=== PATIENT | male | born 1970 | race Caucasian/White ===

== ENCOUNTER → 2018-09-24 08:51 | Outpatient (CLI) | payer SELFPAY | PROVIDERS: Family Provider Internal Medicine; PCP Internal Medicine; Referring Provider Internal Medicine; Visit Provider Internal Medicine | DX: I49.9 Cardiac arrhythmia, unspecified (principal) | CPT/HCPCS: 93225; 93226 ==

== ENCOUNTER → 2018-10-23 07:06 | Outpatient (CLI) | payer SELFPAY ==
--- NOTE | 2018-10-23 13:31 | STRESSREP ---
Stress Test Report Exercise myocardial perfusion stress test. 48-year-old man with a history of chest pain. Medications: Lipitor Stress protocol. Resting EKG demonstrates normal sinus rhythm with a rate of 59 bpm normal intervals are noted resting blood pressure is 118/82 mmHg. The patient exercised according to regular Stone protocol for total duration of 11 minutes and 30 seconds the maximum heart rate attained was 179 bpm which was 105% of maximum predicted heart rate the maximum workload was 11.3 metabolic equivalents. Patient completed 2 minutes and 30 seconds to stage IV of the Stone protocol. At rest there were no ST or T wave changes noted suggest ischemia peak exercise upsloping ST changes only were noted with normally the criteria for ischemia. Myocardial perfusion protocol. 11.9 mCi of technetium 99m sestamibi was injected at rest. The patient exercised according to regular Stone protocol for 11-1/2 minutes attaining 105% of maximum predicted heart rate at peak exercise 33.5 mCi of technetium 99m sestamibi was injected stress images were obtained stress and rest images were reconstructed and compared in the short axis vertical and horizontal long axis. Gated images were also obtained. The resting blood pressure 118/82 with a peak blood pressure 158/74 mmHg. Perfusion SPECT analysis: Review of the stress images demonstrate a normal cardiac silhouette size. There is normal uptake of tracer noted in the anterior wall septum and lateral wall. The basal inferior wall has mildly reduced perfusion on the stress images as well as on the resting images to a similar extent. The above is likely secondary to diaphragmatic and GI attenuation rather than ischemia. No previous infarct is noted. Gated SPECT analysis: The gated ejection fraction is noted to be 65%. Conclusion: Normal exercise myocardial perfusion stress test at a high workload. Preserved ejection fraction.
--- OUTSIDE RECORDS SUMMARY | 2018-12-08 18:54 | XMS RPT_ITS ---
:1970 Author Organization [facility] Care Team Providers Name Role Phone Fast DO, Colleen A Attending Unavailable Fast DO, Colleen A Consulting Unavailable Zaid Flowers Attending Unavailable Fast, Colleen Referring Unavailable Fast, Colleen Attending Unavailable Fast, Colleen Referring Unavailable Fast, Colleen Primary Care Unavailable Fast, Colleen Attending Unavailable Fast, Colleen Referring Unavailable Fast, Colleen Primary Care Unavailable Jonathan, Thiago Attending Unavailable Fast, Colleen Referring Unavailable Purpose Purpose PROBLEMS PROBLEMS DATE TYPE CONDITION / CODE ATTENDING STATUS SOURCE 11/16/2018 Unknown R07.9 - Chest Jonathan, [place] Active [place] pain, unspecified Community / R07.9(ICD-10) Hospital Repository 10/19/2018 Unknown I49.9 - Cardiac Zaid Flowers Active [place] arrhythmia, Community unspecified / Hospital I49.9(ICD-10) Repository PROCEDURES PROCEDURES No Procedure Records FoundVITAL SIGNS VITAL SIGNS No Vital Signs Records FoundRESULTS RESULTS STRESS REPORT Observed: 10/23/2018 Status: F Source: [place] 1:34 PM [facility] REPOSITORY [facility] Cardiovascular Services [address] [place] [address] MR#: [id number] Acct: [id number] Name: EDUARD FAIRBANKS Rep #: [id number] : 1970 48 From: Thiago Castillo MD Primary Care: Colleen Ngo DO Status: REG CLI Ordering Dr: Sex: M C Stress Test Report Exercise myocardial perfusion stress test. 48-year-old man with a history of chest pain. Medications: Lipitor Stress protocol. Resting EKG demonstrates normal sinus rhythm with a rate of 59 bpm normal intervals are noted resting blood pressure is 118/82 mmHg. The patient exercised according to regular Stone protocol for total duration of 11 minutes and 30 seconds the maximum heart rate attained was 179 bpm which was 105% of maximum predicted heart rate the maximum workload was 11.3 metabolic equivalents. Patient completed 2 minutes and 30 seconds to stage IV of the Stone protocol. At rest there were no ST or T wave changes noted suggest ischemia peak exercise upsloping ST changes only were noted with normally the criteria for ischemia. Myocardial perfusion protocol. 11.9 mCi of technetium 99m sestamibi was injected at rest. The patient exercised according to regular Stone protocol for 11-1/2 minutes attaining 105% of maximum predicted heart rate at peak exercise 33.5 mCi of technetium 99m sestamibi was injected stress images were obtained stress and rest images were reconstructed and compared in the short axis vertical and horizontal long axis. Gated images were also obtained. The resting blood pressure 118/82 with a peak blood pressure 158/74 mmHg. Perfusion SPECT analysis: Review of the stress images demonstrate a normal cardiac silhouette size. There is normal uptake of tracer noted in the anterior wall septum and lateral wall. The basal inferior wall has mildly reduced perfusion on the stress images as well as on the resting images to a similar extent. The above is likely secondary to diaphragmatic and GI attenuation rather than ischemia. No previous infarct is noted. Gated SPECT analysis: The gated ejection fraction is noted to be 65%. Conclusion: Normal exercise myocardial perfusion stress test at a high workload. Preserved ejection fraction. 10/23/18 1338 <Electronically signed by Thiago Castillo MD> Date Thiago Castillo MD CC: Colleen Ngo DO Date Dictated: 10/23/181330 Date Transcribed: 10/23/181330 Director Of Testing: [place] Signed ALLERGIES ALLERGIES No Allergies Records FoundENCOUNTERS ENCOUNTERS ADMIT/DISCHARGE ACCOUNT ADMITTING ENCOUNTER LOCATION SOURCE NUMBER CLASS 11/09/2018 [id number] Ambulatory Building:[facility] [place] Practices Repository 10/23/2018 [id number] Ambulatory [facility] ing:[facility] Repository 10/23/2018 [id number] Ambulatory [facility] [place] [facility] Repository 09/24/2018 [id number] Ambulatory [facility] [place] [facility] Repository 09/24/2018 [id number] Ambulatory [address] ing:[facility]N Repository FUNCTIONAL STATUS FUNCTIONAL STATUS No Functional Status Records FoundEQUIPMENT EQUIPMENT No Equipment Records FoundPAYERS PAYERS ENCOUNTER GUARANTOR PAYER SUBSCRIBER SOURCE 10/23/2018 EDUARD A Primary NOT GIVENUNK [place] [id number] JUD[place] Insurance:SELF PAY [facility] [id number]: (330) Number: Effective Repository [phone] () Date:2018-10-19 10/23/2018 EDUARD A Primary NOT GIVENUNK [place] [id number] JUD[place] Insurance:SELF PAY [facility] [id number]: (330) Number: Effective Repository [phone] () Date:2018-10-23 09/24/2018 Eduard A Primary NOT GIVENUNK [place] JUDY Insurance:SELF PAY [facility] [id number]: (330) Number: Effective Repository [phone] () Date:2018-09-24 09/24/2018 Eduard A Primary NOT GIVENUNK [place] JUDY Insurance:SELF PAY [facility] [id number]: (330) Number: Effective Repository [phone] () Date:2018-09-23 SOCIAL HISTORY SOCIAL HISTORY No Social History Records FoundFAMILY HISTORY FAMILY HISTORY No Family History Records FoundPREGNANCY No Status Records FoundADVANCE DIRECTIVES ADVANCE DIRECTIVES No Advanced Directives Records FoundINFORMATION SOURCE INFORMATION SOURCE DATE CREATED AUTHOR AUTHOR'S ORGANIZATION 12/02/2018 [facility]
--- OUTSIDE RECORDS SUMMARY | 2018-12-08 18:54 | XMS RPT_ITS | Continuity of Care Document ---
:1970 Author Organization [facility] Address [address] [facility] [address] [place] [address] Phone Care Team Providers Name Role Phone Colleen Ngo DO Unavailable Dr. Pierre Van Unavailable StephontrinidadGennyKaren Unavailable Unavailable Unavailable Unavailable Problems Name Dates Details Acute chest pain (R07.9, 786.50) Status: Active Arrhythmia (I49.9, 427.9) Status: Active BMI 23.0-23.9, adult (Z68.23, V85.1) Status: Active Chest pain on exertion (R07.9, 786.50) Status: Active Elevated glycated hemoglobin (R73.09, 790.29) Comments: better Status: Active Encounter for screening for malignant neoplasm of prostate (Renamed from Screening for prostate cancer) (Z12.5, V76.44) Status: Active Hyperlipidemia (E78.5, 272.4) Comments: he doesnt want to increase meds he will work harder on decreasing animal products and increasing exercise Status: Active [facility] WELLNESS EXAM Status: Active Melanoma (C43.9, 172.9) Comments: he will call and set up followup Status: Active No Known / History 03-Dec-2017 Status: Active Nonsmoker (Z78.9, V49.89) Status: Active Medications Name Dates Details Atorvastatin Calcium 20 MG Oral Tablet 1 (one) Tablet qhs for 0 days Quantity: 90 {Tablet} Refills: 3 Ordered:18-Feb-2018 Damon Ngo DOa AFColleen sorensen DO A Start : 18-Feb-2018 Active Multivitamin Oral Tablet 1 (one) qd Active Allergies and Adverse Reactions Name Dates Details Penicillin G Potassium *PENICILLINS* (Allergy) Reaction: Rash Status: Active Comments: as a child Procedures Procedure Dates Details Colonoscopy Completed Apr-2018 Comments: Dr. Van - repeat 10 yrs Hernia Repair Completed 2004 melanoma removed face 2011- Dr Nicolas Completed Family History Unknown Family Member Name Dates Details Brother 1 Status: Active Father Comments: living and high chol Status: Active Maternal Grandfather Comments: lung cancer smoker Status: Active Maternal Grandmother Comments: mi Status: Active Mother Comments: living - high chol- Status: Active Paternal Grandfather Comments: chf- cabg Status: Active Sister 1 Comments: living and skin cancer Status: Active Social History Name Dates Details Caffeine Use Comments: 1-2 cups coffee a day Status: Active Most Recent 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 Status: Active Smoking Status Name Dates Details Never smoker Vital Signs Date Test Result Details :33 Temperature 98.3 f Comments: Method: Temporal Pulse 92 /min Comments: Pattern: Regular Respiration Rate 16 /min Comments: Pattern: Unlabored BP Systolic 122 mm[Hg] Comments: Patient Position: Sitting; Cuff Location: Left Arm; Cuff Size: Standard BP Diastolic 80 mm[Hg] Comments: Patient Position: Sitting; Cuff Location: Left Arm; Cuff Size: Standard Weight 168 lb Height 71.25 in Body Mass Index Calculated 23.27 kg/m2 Body Surface Area Calculated 1.96 m2 :00 Temperature 97 f Comments: Method: Temporal Pulse 77 /min Comments: Pattern: Regular Respiration Rate 16 /min Comments: Pattern: Unlabored BP Systolic 115 mm[Hg] Comments: Patient Position: Sitting; Cuff Location: Left Arm; Cuff Size: Standard BP Diastolic 78 mm[Hg] Comments: Patient Position: Sitting; Cuff Location: Left Arm; Cuff Size: Standard Weight 168 lb Height 71.25 in Body Mass Index Calculated 23.27 kg/m2 Body Surface Area Calculated 1.96 m2 :52 Temperature 98.1 f Comments: Method: Temporal Pulse 70 /min Comments: Pattern: Regular Respiration Rate 16 /min Comments: Pattern: Unlabored BP Systolic 115 mm[Hg] Comments: Patient Position: Sitting; Cuff Location: Left Arm; Cuff Size: Standard BP Diastolic 60 mm[Hg] Comments: Patient Position: Sitting; Cuff Location: Left Arm; Cuff Size: Standard Weight 170 lb Height 71.25 in Body Mass Index Calculated 23.54 kg/m2 Body Surface Area Calculated 1.97 m2 [id number]-[id number] Temperature 97.1 f Comments: Method: Temporal Pulse 72 /min Comments: Pattern: Regular Respiration Rate 16 /min Comments: Pattern: Unlabored BP Systolic 122 mm[Hg] Comments: Patient Position: Sitting; Cuff Location: Left Arm; Cuff Size: Standard BP Diastolic 70 mm[Hg] Comments: Patient Position: Sitting; Cuff Location: Left Arm; Cuff Size: Standard Weight 172 lb Height 71.25 in Body Mass Index Calculated 23.82 kg/m2 Body Surface Area Calculated 1.98 m2 Results Date Description Value Details :59 METABOLIC PANEL, COMPREHENSIVE Comments: PATIENT WAS FASTINGPERFORMED BY: [facility] [facility] [id number] ([id number]) ALT (SGPT) 21 [iU]/L (Normal) Range: 0-44 AST (SGOT) 18 [iU]/L (Normal) Range: 0-40 Alkaline Phosphatase 45 [iU]/L (Normal) Range: 39-117 Bilirubin, Total 0.4 mg/dL (Normal) Range: 0.0-1.2 A/G Ratio 2.0 (Normal) Range: 1.2-2.2 Globulin, Total 2.4 g/dL (Normal) Range: 1.5-4.5 Albumin 4.8 g/dL (Normal) Range: 3.5-5.5 Protein, Total 7.2 g/dL (Normal) Range: 6.0-8.5 Calcium 9.8 mg/dL (Normal) Range: 8.7-10.2 Carbon Dioxide, Total 24 mmol/L (Normal) Range: 20-29 Chloride 102 mmol/L (Normal) Range: 96-106 Potassium 4.4 mmol/L (Normal) Range: 3.5-5.2 Sodium 142 mmol/L (Normal) Range: 134-144 BUN/Creatinine Ratio 18 (Normal) Range: 9-20 eGFR If Africn Am 86 mL/min/1.73 (Normal) eGFR If NonAfricn Am 75 mL/min/1.73 (Normal) Creatinine 1.14 mg/dL (Normal) Range: 0.76-1.27 BUN 21 mg/dL (Normal) Range: 6-24 Glucose 96 mg/dL (Normal) Range: 65-99 :59 MICROALBUMIN: CREATININE RATIO Comments: PATIENT WAS FASTINGPERFORMED BY: [facility] [id number] [facility] [id number] ([id number]) AND ([id number]) Alb/Creat Ratio 2.4 {mg/g_creat} (Normal) Range: 0.0-30.0 Albumin, Urine 3.6 ug/mL (Normal) Creatinine, Urine 148.9 mg/dL (Normal) :59 HGB A1C ([id number]) Comments: PATIENT WAS FASTINGPERFORMED BY: [facility] [id number] [facility] [id number] Hemoglobin A1c 5.4 % (Normal) Range: 4.8-5.6 Comments: . Prediabetes: 5.7 - 6.4 Diabetes: >6.4 Glycemic control for adults with diabetes: <7.0 :59 LIPID PANEL ([id number]) Comments: PATIENT WAS FASTINGPERFORMED BY: [employer] [id number] [facility] [id number] LDL/HDL Ratio 2.6 {ratio} (Normal) Range: 0.0-3.6 Comments: LDL/HDL Ratio Men Women 1/2 Avg.Risk 1.0 1.5 Av g.Risk 3.6 3.2 2X Avg.Risk 6.2 5.0 3X Avg.Risk 8.0 6.1 LDL Cholesterol Calc 127 mg/dL (Abnormal) Range: 0-99 VLDL Cholesterol Ashkan 30 mg/dL (Normal) Range: 5-40 HDL Cholesterol 49 mg/dL (Normal) Triglycerides 149 mg/dL (Normal) Range: 0-149 Cholesterol, Total 206 mg/dL (Abnormal) Range: 100-199 :58 CBC W/AUTO DIFF WBC Comments: PATIENT NOT FASTINGPERFORMED BY: [employer] [facility] [id number] Information: NURSE DRAW ([id number]) Immature Grans (Abs) 0.0 {x10E3/uL} (Normal) Range: 0.0-0.1 Immature Granulocytes 0 % (Normal) Baso (Absolute) 0.0 {x10E3/uL} (Normal) Range: 0.0-0.2 Eos (Absolute) 0.1 {x10E3/uL} (Normal) Range: 0.0-0.4 Monocytes(Absolute) 0.6 {x10E3/uL} (Normal) Range: 0.1-0.9 Lymphs (Absolute) 2.2 {x10E3/uL} (Normal) Range: 0.7-3.1 Neutrophils (Absolute) 3.5 {x10E3/uL} (Normal) Range: 1.4-7.0 Basos 1 % (Normal) Eos 2 % (Normal) Monocytes 9 % (Normal) Lymphs 34 % (Normal) Neutrophils 54 % (Normal) Platelets 280 {x10E3/uL} (Normal) Range: 150-379 RDW 14.7 % (Normal) Range: 12.3-15.4 MCHC 33.3 g/dL (Normal) Range: 31.5-35.7 MCH 29.6 pg (Normal) Range: 26.6-33.0 MCV 89 fL (Normal) Range: 79-97 Hematocrit 42.9 % (Normal) Range: 37.5-51.0 Hemoglobin 14.3 g/dL (Normal) Range: 13.0-17.7 RBC 4.83 {x10E6/uL} (Normal) Range: 4.14-5.80 WBC 6.4 {x10E3/uL} (Normal) Range: 3.4-10.8 43-Tob-81378:58 METABOLIC PANEL, COMPREHENSIVE Comments: PATIENT NOT FASTINGPERFORMED BY: [facility]ww[facility] [facility] [id number] ([id number]) ALT (SGPT) 16 [iU]/L (Normal) Range: 0-44 AST (SGOT) 15 [iU]/L (Normal) Range: 0-40 Alkaline Phosphatase, S 49 [iU]/L (Normal) Range: 39-117 Bilirubin, Total 0.5 mg/dL (Normal) Range: 0.0-1.2 A/G Ratio 1.7 (Normal) Range: 1.2-2.2 Globulin, Total 2.7 g/dL (Normal) Range: 1.5-4.5 Albumin, Serum 4.5 g/dL (Normal) Range: 3.5-5.5 Protein, Total, Serum 7.2 g/dL (Normal) Range: 6.0-8.5 Calcium, Serum 9.7 mg/dL (Normal) Range: 8.7-10.2 Carbon Dioxide, Total 25 mmol/L (Normal) Range: 18-29 Chloride, Serum 102 mmol/L (Normal) Range: 96-106 Potassium, Serum 4.5 mmol/L (Normal) Range: 3.5-5.2 Sodium, Serum 141 mmol/L (Normal) Range: 134-144 BUN/Creatinine Ratio 15 (Normal) Range: 9-20 eGFR If Africn Am 88 mL/min/1.73 (Normal) eGFR If NonAfricn Am 76 mL/min/1.73 (Normal) Creatinine, Serum 1.13 mg/dL (Normal) Range: 0.76-1.27 BUN 17 mg/dL (Normal) Range: 6-24 Glucose, Serum 96 mg/dL (Normal) Range: 65-99 62-Bgs-15441:58 PSA (PROSTATE SPECIFIC Comments: PATIENT NOT FASTINGPERFORMED BY: [facility] [facility] [id number]; fu 4-11 DF ANTIGEN) (V76.44) Prostate Specific Ag, 0.4 ng/mL (Normal) Range: 0.0-4.0 Serum Comments: Marco ECLIA methodology. .According to the [employer], Serum PSA shoulddecrease and remain at undetectable levels after radicalprostatectomy. The AUA defines biochemical recurrence as an initialPSA value 0.2 ng/mL or greater followed by a subsequent confirmatoryPSA value 0.2 ng/mL or greater.Values obtained with d ifferent assay methods or kits cannot be usedinterchangeably. Results cannot be interpreted as absolute evidenceof the presence or absence of malignant disease. Plan of Care Name Dates Details Instructions Nonsmoker : Eprescribed prescriptions (G8553) Indication: Nonsmoker Nonsmoker : Eprescribed prescriptions (G8553) Indication: Nonsmoker BMI 23.0-23.9, adult : Eprescribed prescriptions (G8553) Indication: BMI 23.0-23.9, adult BMI 23.0-23.9, adult : Eprescribed prescriptions (G8553) Indication: BMI 23.0-23.9, adult Planned Observations TSH ([id number])Indication: Chest pain on exertion On: 45-Qke-550103:02 Request ASSAY, TROPONIN, QUANTITATIVE (aka Troponin I) ([id number])Indication: Chest pain on exertion On: 69-Nwj-17802:50 Request CBC with auto diff ([id number])Indication: Melanoma On: 87-Zum-78830:25 Request LIPID PANEL ([id number])Indication: Hyperlipidemia On: :25 Request METABOLIC PANEL, COMPREHENSIVE ([id number])Indication: Elevated glycated hemoglobin On: :25 Request HGB A1C ([id number])Indication: Elevated glycated hemoglobin On: :25 Request Planned Encounters Medical; [facility] Review Results - On: 09-Nov-2018 8:00 [facility] Fast DO, Colleen A Fast DO, Colleen A Planned Procedures Nuclear Stress Test/Stress On: 19-Oct-2018 Intent SPECT/TreadmillBy: Fast DO, Colleen A Fast DO, Colleen A ELECTROCARDIOGRAM, COMPLETE (ECG) On: 19-Oct-2018 Intent ([id number])By: Fast DO, Colleen A Fast DO, Comments: ekg showed normal sinus rhythym, normal axis, no acute st/t wave changes sinus rhyethm with pac rsr no change Colleen A ELECTROCARDIOGRAM, COMPLETE (ECG) On: 29-Jun-2018 Intent ([id number])By: Fast DO, Colleen A Fast DO, Comments: ekg showed normal sinus rhythym, normal axis, no acute st/t wave changes variable sinus rate Colleen A Holter Monitor 24 hrsBy: Fast DO, Colleen On: 29-Jun-2018 Intent A Fast DO, Colleen A Stress Echo with TreadmillBy: Fast DO, On: 03-Dec-2017 Intent Colleen A Fast DO, Colleen A ELECTROCARDIOGRAM, COMPLETE (ECG) On: 03-Dec-2017 Intent ([id number])By: Fast DO, Colleen A Fast DO, Comments: ekg showed normal sinus rhythym, normal axis, no acute st/t wave changes rsr Colleen A Instructions Name Dates Details Nonsmoker : How to access health information online Indication: Nonsmoker Nonsmoker : How to access health information online - Detail Indication: Nonsmoker Nonsmoker : Patient Instructions Indication: Nonsmoker Nonsmoker : How to access health information online Indication: Nonsmoker Nonsmoker : How to access health information online - Detail Indication: Nonsmoker Nonsmoker : Patient Instructions Indication: Nonsmoker BMI 23.0-23.9, adult : How to access health information online Indication: BMI 23.0-23.9, adult BMI 23.0-23.9, adult : How to access health information online - Detail Indication: BMI 23.0-23.9, adult BMI 23.0-23.9, adult : Patient Instructions Indication: BMI 23.0-23.9, adult BMI 23.0-23.9, adult : How to access health information online Indication: BMI 23.0-23.9, adult BMI 23.0-23.9, adult : How to access health information online - Detail Indication: BMI 23.0-23.9, adult BMI 23.0-23.9, adult : Patient Instructions Indication: BMI 23.0-23.9, adult Encounters Office Visit On: 19-Oct-2018 9:18 Encounter Reason: Chest Pain - Symptoms include chest pain and dyspnea (carrying a box downstairs prompted some SOB. Also notices getting SOB more easily). The pain is located in the substernal area, left lateral chest a End: 19-Oct-2018 10:04 nd right lateral chest. The pain radiates to the back (sometimes will feel a tinge below shoulder blades). The patient describes the pain as pressure-like. Onset was week(s) ago (off and on). The ji ent describes this as worsening (not worse but happening more frequently). Symptoms are exacerbated by exercise/activity. Note for Chest pain: - he noticing with strenous activity carrying on steps- f eeling winded more than normal also had dizzy spell while shopping- he was eating and drinking fine- lasted an hour=- no chest pain maybe pressure- did have chest pressure while on steps - did take pril osec before when had sometimes will help sometimes wont- no nausea or sweat- never did stress test ordered in nov as he said his sx got better- last spell this weekend - no cough or wheeze - bp is good- symptoms not routinely they are intermittent in natureEncounter Diagnosis: Nonsmoker, BMI 23.0-23.9, adult, Chest pain on exertion [facility] Office Visit On: 29-Jun-2018 7:50 Encounter Reason: Follow up for chronic medical issues - The patient feels well with minor complaints, has good energy level and is sleeping well. Patient has been compliant with instructions. Current medication use: no End: 29-Jun-2018 8:42 side effects, compliant with dosing regimen and considered effective by patient. Patient sleeps 8 hours per night. The medical issues the patient is following up for include All identified problems adrianne stockLadi Note for Follow up for chronic medical issues: tolerating atorvastatin- - chol little higher he doesnt want to go up on med he not exercisign routinely- he is having palpitations - couple times a m onth- not severe- will last a day or so--during high stress or fatigue off caffeine- had colonscopy normal- needs skin check he will make appt- energy good- he only gets dizzy if doesnt drink enough water, [ADDITIONAL REASON] Follow up tests - Date: (06/26 blood work). Encounter Diagnosis: Nonsmoker, BMI 23.0-23.9, adult, Melanoma, Elevated glycated hemoglobin, Hyperlipidemia, Arrhythmia [facility] Phone Encounter On: 11-May-2018 15:26 [facility] End: 11-May-2018 15:27 Office Visit On: 18-Feb-2018 7:52 Encounter Reason: Physical male exam - General health: feels well with no complaints, has good energy level and is sleeping well. Nutrition: appropriate balanced diet. Exercises 0 (nothing structured) days per week. Slee End: 15-Mar-2018 21:46 ps on average 8 hours per night. Normal bowel and bladder habits. There are no current emotional problems. Note for Physical exam: he hasnt had more chest pain and feeling well he didnt do stress test - he is exercising and doesnt feel it then feels more like when he stressed out or anxiousEncounter Diagnosis: Nonsmoker, BMI 23.0-23.9, adult, [facility] WELLNESS EXAM, Hyperlipidemia, Melanoma, Elevated glycated hemoglobin [facility] Office Visit On: 03-Dec-2017 10:43 Encounter Reason: Transition into care - The patient is transitioning into care from another physician., [ADDITIONAL REASON] new patient male physicial - Last seen between 3-6 months ago. General health: f End: 04-Dec-2017 18:54 eels well with no complaints, has decreased energy level (last couple days, possibly seasonal. But normally ok) and is sleeping well. The patient's appetite is decreased. Nutrition: poor nutrition. Exer cises 0 (nothing structure but active) days per week. Sleeps on average 8 hours per night. Elimination problems include none (BM are a little less than they used to be). Safety measures include home smo ke detectors. Current emotional problems include anxiety (runs 2 [employer] so carries some stress in chest and shoulders). Preventative measures done by patient are screening, colonoscopy (none) and PS A (coming up to 2 years since checked). Note for Physical exam: has had some episodes of stress over years and gets chest back symptoms same symptoms as now and has had stress test 8 years ago and wor k up 3 different times- not related to exertion necessarily sometimes quantitiy of food - occ wakes up middle of night- on lipitor 10 years- has melanoma sees semaj- yearly in summer- not sob not sweaty or nauseated no cough or wheeze- Encounter Diagnosis: Nonsmoker, BMI 23.0-23.9, adult, Hyperlipidemia, Melanoma, Acute chest pain, Encounter for screening for malignant neoplasm of prostate (Renamed from Screening for prostate cancer) [facility]
== END ==
PROVIDERS: Family Provider Internal Medicine; PCP Internal Medicine; Referring Provider Internal Medicine; Visit Provider Internal Medicine
DX: R07.9 Chest pain, unspecified (principal)
CPT/HCPCS: 78452; 93017; A9500; A4216

== ENCOUNTER → 2021-03-05 13:09 | Outpatient (CLI) | payer SELFPAY | PROVIDERS: PCP Internal Medicine; Referring Provider Internal Medicine; Visit Provider Internal Medicine | DX: R07.9 Chest pain, unspecified (principal) | CPT/HCPCS: 84484 ==

== ENCOUNTER → 2021-03-08 09:10 | Outpatient (CLI) | payer SELFPAY | PROVIDERS: PCP Internal Medicine; Referring Provider Internal Medicine; Visit Provider Internal Medicine | DX: R00.2 Palpitations (principal) | CPT/HCPCS: 93225; 93226 ==

== ENCOUNTER → 2021-03-12 07:58 | Outpatient (CLI) | payer SELFPAY ==
--- NOTE | 2021-03-12 08:06 | ECHOD_ITS ---
Reason For Study: Chest Pain Procedure This was a 2D Doppler, Color Flow transthoracic echocardiogram. Exam performed in department. Left Ventricle Normal LV size. Left ventricular systolic function is normal. The estimated ejection fraction is 65 %. Normal diastology for age. No regional wall motion abnormalities noted. Right Ventricle Normal RV size. Normal systolic function. Atria Normal left atrium. Normal right atrium. Mitral Valve Normal mitral valve. Tricuspid Valve Normal tricuspid valve. Aortic Valve Normal aortic valve. Trisinus/trileaflet aortic valve. Pulmonic Valve Normal pulmonic valve. Great Vessels Normal aortic root. The pulmonary artery is normal size. Normal inferior vena cava. Pericardium/Pleural No pericardial effusion. MMode/2D Measurements & Calculations LVIDd: 4.0 cm IVSd: 0.94 cm Ao root diam: 3.0 cm LVIDs: 2.7 cm LVPWd: 0.78 cm RVDd: 4.0 cm FS: 32.9 % LAV(MOD-bp): 28.0 ml LVAd ap4: 26.3 cm2 SV(MOD-sp4): 42.6 ml LAV(MOD-bp) Indexed: 13.9 ml/m2 LVLd ap4: 8.3 cm LAV(MOD-sp2): 32.6 ml EDV(MOD-sp4): 69.0 ml LAV(MOD-sp4): 22.5 ml EDV(sp4-el): 70.2 ml LVAs ap4: 14.5 cm2 LVLs ap4: 7.0 cm ESV(MOD-sp4): 26.4 ml ESV(sp4-el): 25.3 ml EF(MOD-sp4): 61.8 % EF(sp4-el): 63.9 % SV(sp4-el): 44.9 ml LA A4 area: 11.0 cm2 LA dimension(2D): 3.7 cm RA A4 area: 11.5 cm2 Doppler Measurements & Calculations MV E max jonas: 63.7 cm/sec Lat Peak E' Jonas: 12.5 cm/sec Med Peak E' Jonas: 9.5 cm/sec MV A max jonas: 51.8 cm/sec E/E' lat: 5.1 E/E' med: 6.7 MV E/A: 1.2 Ao V2 max: 127.8 cm/sec LV V1 max: 113.9 cm/sec PA V2 max: 110.7 cm/sec Ao max P.5 mmHg LV V1 max P.2 mmHg Ao V2 mean: 91.6 cm/sec Ao mean P.6 mmHg Ao V2 VTI: 23.2 cm ECHO/Echo Complete Interpretation Summary Normal LV size. Left ventricular systolic function is normal. The estimated ejection fraction is 65 %. Normal diastology for age. Structurally normal valves. Ordering Physician: Colleen Ngo Referring Physician: Colleen Ngo Performed By: Ileana Hernandez, HECTOR, RVT
== END ==
PROVIDERS: PCP Internal Medicine; Referring Provider Internal Medicine; Visit Provider Internal Medicine
DX: R07.9 Chest pain, unspecified (principal)
CPT/HCPCS: 93306

== ENCOUNTER → 2021-03-23 06:51 | Outpatient (CLI) | payer SELFPAY ==
--- NOTE | 2021-03-23 09:05 | STRESSREP_ITS ---
Stress Test Report Date: 03-23-2021 Procedure: Exercise tolerance test/imaging study Indications: Chest pain; palpitations Consent: Per the patient Procedure: The patient exercised on a Stone protocol for 11 minutes and 40 seconds completing Stage III and 2 minutes and 40 seconds of Stage IV achieving a peak heart rate of 171 bpm (101% predicted maximal heart rate) with a peak blood pressure 158/62 mmHg and a peak MET capacity of 13 METs. The baseline ECG demonstrated sinus bradycardia. The peak exercise ECG demonstrated no obvious ECG changes. There were no cardiac dysrhythmias pretest, during exercise, or recovery. The functional capacity was considered good. There was no complaint of chest discomfort during exercise or recovery. The examination was discontinued secondary to dyspnea. Impression: 1. Technically adequate (percent predicted maximal heart rate greater than 85%) exercise tolerance test 2. Peak exercise ECG with no obvious ECG changes 3. There were no cardiac dysrhythmias pretest, during exercise, or recovery 4. Nuclear images pending Myocardial perfusion imaging study: Technique: The patient was injected with 11.2 mCi of technetium 99m Cardiolite and subsequently rest SPECT Cardiolite nuclear imaging was obtained in the horizontal long, vertical long, and short axis views. The patient exercised on a Stone protocol for 11 minutes and 40 seconds completing Stage III and 2 minutes and 40 seconds of Stage IV achieving a peak heart rate of 171 bpm (101% predicted maximal heart rate) with a peak blood pressure 158/62 mmHg and a peak MET capacity of 13 METs. The patient was injected with 31.7 mCi of technetium 99m Cardiolite and subsequently stress SPECT Cardiolite nuclear imaging was obtained in the horizontal long, vertical long, and short axis views. A gated Cardiolite study at peak stress was obtained. Interpretation: Rest and stress SPECT Cardiolite nuclear imaging status post realignment, norm alization, and attenuation correction, demonstrates at rest the appearance of subtle diminished tracer uptake near the apical segments which appears to improve and/or normalize following stress. Status post stress there appears to be relative uniform tracer uptake. There is end systolic thickening and brightening. The gated Cardiolite study demonstrates myocardial thickening and inward wall motion. The reported LVEF is 72%. Impression: 1. Rest and stress SPECT Cardiolite nuclear imaging demonstrate myocardial perfusion changes at rest which appear to improve following stress appearing c ompatible with shifting soft tissue attenuation/artifact with no myocardial perfusion changes considered diagnostic for associated stress-induced myocardial ischemia. 2. The gated Cardiolite study reports an LVEF of 72%. This note was generated with [employer] software. It may contain incorrect words, spelling, and punctuation that were not noted in checking the note before signing.
== END ==
PROVIDERS: PCP Internal Medicine; Referring Provider Internal Medicine; Visit Provider Internal Medicine
DX: R07.9 Chest pain, unspecified (principal)
CPT/HCPCS: 78452; 93017; A9500; A4216

== ENCOUNTER → 2025-10-18 | Outpatient (CLI) | payer SELFPAY ==
[2025-10-18 11:01] LABS: Hematocrit 43.4 % (40-54); Hemoglobin 14.3 g/dL (13.0-16.5); Immature Granulocytes Count 0.010 X10^3/uL (0.0-0.0); Mean Corp Hgb Conc 32.9 g/dL (32-36); Mean Corpuscular Volume 89.7 fL (80-94); Mean Platelet Vol. 9.2 fl (6.2-12.0); NRBC Flagged by Analyzer 0 % (0-5); Platelet Count 279 K/mm3 (150-450); RBC Distribution Width CV 13.7 % (11.6-14.6); RBC Distribution Width SD 45.2 fl (35.1-43.9); Red Blood Count 4.84 M/mm3 (4.6-6.2); White Blood Count 5.2 K/mm3 (4.4-11.0)
[2025-10-18 11:36] LABS: AST(SGOT) 28 U/L (<=37); Alanine Aminotransfer ALT/SGPT 39 U/L (<=46); Albumin, Serum 4.6 g/dL (3.5-5.0); Alkaline Phosphatase 45 U/L (40-129); Anion Gap 9 (5-15); BUN 19 mg/dL (4-19); BUN/Creat Ratio 17.5 RATIO (10-20); Calcium,Total 9.8 mg/dL (7.6-11.0); Carbon Dioxide 27.1 mmol/L (21.0-32.0); Chloride 103 mmol/L (98-108); Cholesterol 199 mg/dL (<=200); Globulin 2.8 g/dL (2.2-4.2); Glucose 92 mg/dL (70-99); Low Density Lipoprotein Calc. 121 mg/dL; Potassium 4.1 mmol/L (3.3-5.1); Triglycerides 120 mg/dL; Very Low Density Lipoprotein 24 mg/dL (5-40); Vitamin D,25 Hydroxy 71.9 ng/mL (30-100); cholesterol:hdl ratio screen 3.51
== END | disposition home or self-care (01) ==
LOC: CIMLAB 08:23
PROVIDERS: PCP Internal Medicine; Referring Provider Internal Medicine; Visit Provider Internal Medicine
DX: R73.09 Other abnormal glucose (principal); C43.9 Malignant melanoma of skin, unspecified; E78.5 Hyperlipidemia, unspecified
CPT/HCPCS: 36415; 80053; 80061; 82306; 83036; 85025